=== PATIENT | female | born 1990 | race Caucasian/White ===

== ENCOUNTER → 2016-12-20 | Outpatient (CLI) | payer BC ==
[~2016-12-20] MED LIST: BUPROPION; LEVO1TAB29 PO
== END | disposition home or self-care (01) ==
LOC: STAR 08:06
PROVIDERS: ATTEND Obstetrics & Gynecology
DX: Z02.9 Encounter for administrative examinations, unspecified (principal)

== ENCOUNTER 2017-01-03 06:02 | Observation (INO) | payer BC ==
[~2017-01-03] VITALS: Ht 170.2 cm; Wt 140.0 kg
[2017-01-03 07:04] VITALS: BP 109/69
[2017-01-03] MEDS ORDERED: LACTATED RINGERS 1,000 ML IV SCH ×2 (07:04→09:27)
[2017-01-03 07:28] LABS: DAU SCREEN DISCLAIMER
[2017-01-03 07:52] LABS: HCG UR OBC PASS
[2017-01-03] MEDS ORDERED: OXYcodone 5 MG/5 ML ORAL.SOL UDC PO PRN (08:00)
[2017-01-03] MEDS ORDERED: FENTANYL PF 100 MCG/2ML IV PRN (08:00)
[2017-01-03] MEDS ORDERED: ACETAMINOPHEN 325 MG TABLET PO PRN (08:00)
[2017-01-03] MEDS ORDERED: ONDANSETRON 2MG/ML, 2ML IVPush PRN ×2 (08:00→09:30)
[2017-01-03] MEDS ORDERED: PROMETHAZINE 25 MG/ML, 1ML IV PRN (08:00)
[2017-01-03] MEDS ORDERED: HYDROmorphone 1 MG/ML, 1ML IV PRN (08:00)
[2017-01-03] MEDS ORDERED: CEFAZOLIN 1,000 MG ONE (08:02)
[2017-01-03] MEDS ORDERED: PROPOFOL 10 MG/ML, 20ML ONE (08:02)
[2017-01-03] MEDS ORDERED: DEXAMETHASONE 4 MG/ML, 5ML ONE (08:02)
[2017-01-03] MEDS ORDERED: KETOROLAC 30 MG/1 ML ONE (08:02)
[2017-01-03] MEDS ORDERED: ONDANSETRON 2MG/ML, 2ML ONE (08:02)
[2017-01-03] MEDS ORDERED: SILVER SULF. CRM 1% , 25GM ONE (08:21)
[2017-01-03] MEDS ORDERED: FENTANYL PF 100 MCG/2ML ONE ×2 (08:37→10:06)
[2017-01-03] MEDS ORDERED: SILVER SULF. CRM 1% , 25GM TP ONE (08:55)
[2017-01-03] MEDS ORDERED: HYDROmorphone PCA 30 MG/30 ML IV PRN (09:30)
[2017-01-03] MEDS ORDERED: MIDAZOLAM 1 MG/ML, 2ML ONE (10:06)
[2017-01-03] MEDS ORDERED: HYDROmorphone PCA 30 MG/30 ML ONE (10:07)
[2017-01-03] MEDS ORDERED: ACETAMINOPHEN 650 MG/20.3 ML UDC ONE (10:49)
[2017-01-03] MEDS ORDERED: OXYcodone 5 MG/5 ML ORAL.SOL UDC ONE (10:49)
[2017-01-03] MEDS ORDERED: MIDAZOLAM 1 MG/ML, 2ML IV PRN (11:30)
[2017-01-03] MEDS ORDERED: HYDR-3240 PO (15:58)
[2017-01-03] MEDS ORDERED: IBUP-1222 PO (15:58)
== END 2017-01-03 16:05 | disposition home or self-care (01) ==
LOC: OUT 06:02 → ORIP 09:27 → 4NOR 12:25 → DCLOUNGE 15:46
PROVIDERS: ADMIT Obstetrics & Gynecology; ATTEND Obstetrics & Gynecology
DX: A63.0 Anogenital (venereal) warts (principal); E66.9 Obesity, unspecified; G43.909 Migraine, unspecified, not intractable, without status migrainosus; F32.9 Major depressive disorder, single episode, unspecified; F41.9 Anxiety disorder, unspecified; Z87.891 Personal history of nicotine dependence
CPT/HCPCS: 46917; 80307; 81025; 88305; G0378; J0690; J1100; J1170; J1885; J2250; J2405; J2704; J3010; J7120

== ENCOUNTER 2018-06-10 11:47 | Emergency (ER) | payer BC, OTHER ==
[~2018-06-10] VITALS: Ht 170.2 cm; Wt 137.2 kg
[~2018-06-10 11:47] MED LIST changes: +HYDR-3240 PO; +IBUP-1222 PO
[2018-06-10 11:57] VITALS: BP 122/87
[2018-06-10] MEDS ORDERED: DEXAMETHASONE 4 MG TABLET ONE (12:25)
[2018-06-10] MEDS ORDERED: DEXAMETHASONE 4 MG TABLET PO ONE (12:30)
== END 2018-06-10 14:39 ==
LOC: ED 13:20
DX: J11.1 Influenza due to unidentified influenza virus with other respiratory manifestations (principal)
CPT/HCPCS: 99283